=== PATIENT | male | born 1995 | race Caucasian/White ===

== ENCOUNTER → 2024-06-03 07:17 | Outpatient (REF) | payer BC, SELFPAY | LOC: HWRAD 07:17 | PROVIDERS: ATTENDING PHYSICIAN Family Medicine | DX: R74.8 Abnormal levels of other serum enzymes (principal) | CPT/HCPCS: 76700 ==

== ENCOUNTER → 2025-01-23 07:49 | Outpatient (REF) | payer BC, SELFPAY | LOC: HWRAD 07:49 | PROVIDERS: ATTENDING PHYSICIAN Specialist; FAMILY PHYSICIAN Family Medicine | DX: R39.15 Urgency of urination (principal) | CPT/HCPCS: 76770 ==